=== PATIENT | male | born 1985 | race Caucasian/White ===

== ENCOUNTER 2019-12-14 12:09 | Emergency (ER) | payer SELFPAY ==
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
== END 2019-12-14 13:31 | disposition home or self-care (01) ==
LOC: MW.ED 12:09
DX: S01.511D Laceration without foreign body of lip, subsequent encounter (principal); F17.210 Nicotine dependence, cigarettes, uncomplicated; V89.2XXD Person injured in unspecified motor-vehicle accident, traffic, subsequent encounter
CPT/HCPCS: 99282